=== PATIENT | male | born 1955 | race Caucasian/White ===

== ENCOUNTER 2025-03-30 10:39 | Emergency (ER) | payer MEDICARE, MEDICAID ==
[~2025-03-30] VITALS: Ht 167.6 cm; Wt 75.0 kg
[2025-03-30 10:51] VITALS: TEMP 97.9
[2025-03-30] MEDS ORDERED: AMOX-457 PO (12:24)
[2025-03-30] MEDS ORDERED: IBUP-1492 PO (12:24)
[2025-03-30] MEDS ORDERED: ACET-3385 PO (12:24)
[2025-03-30] MEDS: AMOX TR/POT CLAV 875 MG/125 MG TABLET PO ONE (12:24)
[2025-03-30] MEDS: IBUPROFEN 600 MG TABLET PO ONE (12:24)
[2025-03-30] MEDS: ACETAMINOPHEN 500 MG TABLET PO ONE (12:25)
[2025-03-30 13:03] VITALS: BP 124/77; PULSE 84; RESP 18; O2SAT 100
== END 2025-03-30 13:08 | disposition home or self-care (01) ==
LOC: EMS 10:39
DX: K08.89 Other specified disorders of teeth and supporting structures (principal)
CPT/HCPCS: 99284; Z7502; Z7610